=== PATIENT | male | born 1960 | race Caucasian/White ===

== ENCOUNTER 2018-04-27 04:12 | Inpatient (IN) | payer OTHER ==
[2018-04-27] MEDS: NITROGLYCERIN (SL) 0.4 MG TAB SL ×3 (04:29→04:53)
[2018-04-27] MEDS: ASPIRIN 325 MG TAB PO (04:30)
[2018-04-27 04:39] LABS: ADD MAN DIFF? NO
[2018-04-27 04:40] LABS: WHITE BLOOD COUNT 9.9 10^3/ul (4.8-10.8)
[2018-04-27 04:40] LABS: BASOPHIL # 0.1 10^3/ul (0.0-0.1); BASOPHILS % 0.6 % (0.0-2.0); EOSINOPHILS # 0.2 10^3/ul (0.0-0.5); EOSINOPHILS % 2.2 % (0.0-7.0); HEMATOCRIT 45.1 % (42.0-52.0); HEMOGLOBIN 14.7 g/dl (14.0-18.0); MEAN CORPUSCULAR HEMOGLOBIN 28.5 pg (29.0-33.0); MEAN CORPUSCULAR HGB CONC 32.6 g/dl (32.0-37.0); MEAN CORPUSCULAR VOLUME 87.6 fl (82.0-101.0); MEAN PLATELET VOLUME 10.4 fl (7.4-10.4); MONOCYTE # 0.7 10^3/ul (0.3-0.9); MONOCYTES % 6.8 % (0.0-11.0); NEUTROPHILS % 70.2 % (39.0-77.0); PLATELET COUNT 245 10^3/UL (140-415); RED BLOOD COUNT 5.15 10^6/ul (4.70-6.10); RED CELL DISTRIBUTION WIDTH 12.4 % (11.5-14.5)
[2018-04-27] MEDS: ONDANSETRON 4 MG INJ IV (04:41)
[2018-04-27] MEDS: morphine 4 MG/ML VIAL IV (04:42)
[2018-04-27 05:00] LABS: INR 0.97; PARTIAL THROMBOPLASTIN TIME 29.7 Sec (25.0-35.0)
[2018-04-27 05:03] LABS: ANION GAP 15 (8-16); BLOOD UREA NITROGEN 15 mg/dl (7-20); CALCIUM 9.1 mg/dl (8.4-10.2); CARBON DIOXIDE 27 mmol/L (21-31); CHLORIDE 108 mmol/L (97-110); CREATININE 0.86 mg/dl (0.61-1.24); GLUCOSE 105 mg/dl (70-220); POTASSIUM 4.2 mmol/L (3.5-5.1); SODIUM 146 mmol/L (135-144)
[2018-04-27] MEDS: FUROSEMIDE 40 MG INJ IV ×2 (05:14→11:51)
[2018-04-27] MEDS: ENOXAPARIN 80 MG/0.8 ML SYG SC (05:29)
[2018-04-27] MEDS ORDERED: NITROGLYCERIN (SL) 0.4 MG TAB (07:00)
[2018-04-27] MEDS ORDERED: ACETAMINOPHEN 325 MG TAB PO (07:30)
[2018-04-27] MEDS ORDERED: ONDANSETRON 4 MG INJ IV (07:30)
[2018-04-27 10:26] LABS: ALANINE AMINOTRANSFERASE 58 IU/L (13-69); ALBUMIN 4.2 g/dl (3.3-4.9); ALKALINE PHOSPHATASE 82 IU/L (42-121); ASPARTATE AMINO TRANSFERASE 74 IU/L (15-46); BILIRUBIN,INDIRECT 0.6 mg/dl (0-1.1); BILIRUBIN,TOTAL 0.6 mg/dl (0.2-1.3); TOTAL PROTEIN 7.9 g/dl (6.1-8.1)
[2018-04-27] MEDS: morphine 2 MG INJ IV ×2 (11:51→19:41)
[2018-04-27 12:01] LABS: CREATINE KINASE 455 IU/L (23-200)
[2018-04-27 12:11] LABS: CK INDEX 0.6; TROPONIN-I 0.062 ng/ml (0.000-0.120)
[2018-04-27 12:12] LABS: CK-MB 2.84 ng/ml (0.0-2.4)
[2018-04-27 12:45] LABS: TROPONIN-I 0.052 ng/ml (0.000-0.120)
[2018-04-27] MEDS ORDERED: CEFAZOLIN 2 GM/50 ML (PMX) 50 ML IVPB (14:00)
[2018-04-27 17:00] LABS: CREATINE KINASE 353 IU/L (23-200)
[2018-04-27 17:13] LABS: CK INDEX 0.6
[2018-04-27 17:16] LABS: CK-MB 2.27 ng/ml (0.0-2.4)
[2018-04-27 19:13] LABS: TROPONIN-I 0.052 ng/ml (0.000-0.120)
[2018-04-27] MEDS: ATORVASTATIN 40 MG TAB PO (21:46)
[2018-04-28] MEDS: FUROSEMIDE 40 MG INJ IV (05:42)
[2018-04-28] MEDS: ENOXAPARIN 80 MG/0.8 ML SYG SC (05:48)
[2018-04-28] MEDS: morphine 2 MG INJ IV ×4 (06:14→22:37)
[2018-04-28] MEDS ORDERED: SOD CHLORIDE 0.9% 250 ML IV* (07:38)
[2018-04-28] MEDS ORDERED: CEFAZOLIN 2 GM/50 ML (PMX) 50 ML IVPB (08:00)
[2018-04-28] MEDS: ASPIRIN 81 MG TAB PO (08:19)
[2018-04-28] MEDS: METOPROLOL 25 MG TAB PO ×2 (08:20→20:46)
[2018-04-28 08:58] LABS: ADD MAN DIFF? NO
[2018-04-28 09:06] LABS: BASOPHIL # 0.1 10^3/ul (0.0-0.1); BASOPHILS % 0.6 % (0.0-2.0); EOSINOPHILS # 0.2 10^3/ul (0.0-0.5); EOSINOPHILS % 1.9 % (0.0-7.0); HEMATOCRIT 45.8 % (42.0-52.0); HEMOGLOBIN 14.8 g/dl (14.0-18.0); LYMPHOCYTES # 1.9 10^3/ul (0.8-2.9); LYMPHOCYTES % 24.2 % (15.0-51.0); MEAN CORPUSCULAR HEMOGLOBIN 28.3 pg (29.0-33.0); MEAN CORPUSCULAR HGB CONC 32.3 g/dl (32.0-37.0); MEAN CORPUSCULAR VOLUME 87.6 fl (82.0-101.0); MEAN PLATELET VOLUME 10.9 fl (7.4-10.4); MONOCYTE # 0.7 10^3/ul (0.3-0.9); MONOCYTES % 8.3 % (0.0-11.0); NEUTROPHIL # 5.1 10^3/ul (1.6-7.5); NEUTROPHILS % 64.7 % (39.0-77.0); PLATELET COUNT 255 10^3/UL (140-415); RED BLOOD COUNT 5.23 10^6/ul (4.70-6.10); RED CELL DISTRIBUTION WIDTH 12.5 % (11.5-14.5)
[2018-04-28 09:06] LABS: WHITE BLOOD COUNT 7.8 10^3/ul (4.8-10.8)
[2018-04-28 09:24] LABS: ANION GAP 12 (8-16); BLOOD UREA NITROGEN 19 mg/dl (7-20); CALCIUM 8.8 mg/dl (8.4-10.2); CARBON DIOXIDE 34 mmol/L (21-31); CHLORIDE 103 mmol/L (97-110); CREATININE 0.89 mg/dl (0.61-1.24); GLUCOSE 102 mg/dl (70-220); MAGNESIUM 2.2 mg/dl (1.7-2.5); PHOSPHORUS 3.9 mg/dl (2.5-4.9); POTASSIUM 4.6 mmol/L (3.5-5.1); SODIUM 144 mmol/L (135-144)
[2018-04-28] MEDS: ATORVASTATIN 40 MG TAB PO (20:46)
[2018-04-29] MEDS: morphine 2 MG INJ IV ×4 (02:58→21:19)
[2018-04-29] MEDS: ENOXAPARIN 80 MG/0.8 ML SYG SC (05:15)
[2018-04-29] MEDS: ASPIRIN 81 MG TAB PO (08:01)
[2018-04-29] MEDS: METOPROLOL 25 MG TAB PO ×2 (08:04→21:17)
[2018-04-29] MEDS: ATORVASTATIN 40 MG TAB PO (21:17)
[2018-04-30] MEDS: morphine 2 MG INJ IV ×4 (01:40→11:47)
[2018-04-30] MEDS: ENOXAPARIN 80 MG/0.8 ML SYG SC (04:56)
[2018-04-30 06:40] LABS: ADD MAN DIFF? NO
[2018-04-30 06:43] LABS: WHITE BLOOD COUNT 8.9 10^3/ul (4.8-10.8)
[2018-04-30 06:43] LABS: BASOPHIL # 0.1 10^3/ul (0.0-0.1); BASOPHILS % 0.8 % (0.0-2.0); EOSINOPHILS # 0.3 10^3/ul (0.0-0.5); EOSINOPHILS % 3.1 % (0.0-7.0); HEMATOCRIT 43.8 % (42.0-52.0); LYMPHOCYTES # 3.1 10^3/ul (0.8-2.9); LYMPHOCYTES % 34.9 % (15.0-51.0); MEAN CORPUSCULAR HEMOGLOBIN 27.9 pg (29.0-33.0); MEAN CORPUSCULAR VOLUME 87.4 fl (82.0-101.0); MEAN PLATELET VOLUME 10.5 fl (7.4-10.4); MONOCYTE # 0.5 10^3/ul (0.3-0.9); PLATELET COUNT 244 10^3/UL (140-415); RED BLOOD COUNT 5.01 10^6/ul (4.70-6.10); RED CELL DISTRIBUTION WIDTH 12.2 % (11.5-14.5)
[2018-04-30] MEDS ORDERED: DOPamine-D5W 1.6 MG/ML 250 ML (07:00)
[2018-04-30] MEDS ORDERED: NITROGLYCERIN 50 MG/D5W 250 ML BTL (07:00)
[2018-04-30 07:02] LABS: ANION GAP 15 (8-16); BLOOD UREA NITROGEN 16 mg/dl (7-20); CALCIUM 8.7 mg/dl (8.4-10.2); CARBON DIOXIDE 27 mmol/L (21-31); CHLORIDE 107 mmol/L (97-110); CREATININE 0.79 mg/dl (0.61-1.24); GLUCOSE 103 mg/dl (70-220); MAGNESIUM 2.3 mg/dl (1.7-2.5); PHOSPHORUS 3.6 mg/dl (2.5-4.9); POTASSIUM 4.1 mmol/L (3.5-5.1); SODIUM 145 mmol/L (135-144)
[2018-04-30 07:05] LABS: INR 0.97
[2018-04-30 07:06] LABS: PARTIAL THROMBOPLASTIN TIME 31.5 Sec (25.0-35.0)
[2018-04-30] MEDS: METOPROLOL 25 MG TAB PO (08:51)
[2018-04-30] MEDS: ASPIRIN 81 MG TAB PO (08:51)
[2018-04-30] MEDS ORDERED: MIDAZOLAM 5 ML ×2 (12:00→14:48)
[2018-04-30] MEDS ORDERED: PHENYLephrine (100 MCG/ML) 5ML SYG ×2 (12:05→13:52)
[2018-04-30] MEDS ORDERED: CA CHLORIDE 10% 10 ML SYRINGE (12:16)
[2018-04-30] MEDS ORDERED: MAGNESIUM SULFATE (MG) 50% 10 ML INJ (12:16)
[2018-04-30] MEDS ORDERED: LIDOCAINE 100 MG SYRINGE (12:16)
[2018-04-30] MEDS ORDERED: POTASSIUM CHLORIDE 40 MEQ INJ (12:16)
[2018-04-30] MEDS ORDERED: HEPARIN 1000 UNITS/ML 10 ML INJ ×2 (12:16→14:14)
[2018-04-30] MEDS ORDERED: ALBUMIN HUMAN 25% 200 ML (12:17)
[2018-04-30] MEDS ORDERED: NA BICARBONATE 8.4% 50 ML SYG (12:17)
[2018-04-30] MEDS ORDERED: MANNITOL 20% 250 ML IV (12:17)
[2018-04-30] MEDS ORDERED: PHENYLephrine 10 MG INJ (12:18)
[2018-04-30] MEDS: INSULIN HUMAN REGULAR 100 UNIT in SOD CHLORIDE 0.9% 99 ML IVPB (13:00)
[2018-04-30] MEDS: HEPARIN (10000 UNITS/ML) 10,000 UNIT, MILRINONE LACTATE 10 MG in SOD CHLORIDE 0.9% 1,00... SC (13:00)
[2018-04-30] MEDS: ASPIRIN 600 MG SUPP PR (13:00)
[2018-04-30] MEDS: PHENYLephrine 20MG IN 250 ML 250 ML IV (13:00)
[2018-04-30] MEDS: NORepinephrine 8MG/250 ML (PMX 250 ML IV (13:00)
[2018-04-30] MEDS: PAPAVERINE 60 MG INJ (13:08)
[2018-04-30] MEDS: HEPARIN 1000 UNITS/ML 10 ML INJ (13:08)
[2018-04-30] MEDS: VANCOMYCIN 1 GM INJ (13:08)
[2018-04-30] MEDS ORDERED: SODIUM CL BACTERIOSTATIC 30 ML INJ (13:08)
[2018-04-30] MEDS ORDERED: TRANEXAMIC ACID 1,000 MG/10 ML VIAL (14:00)
[2018-04-30] MEDS ORDERED: CEFAZOLIN 1 GM INJ ×2 (14:08→14:53)
[2018-04-30] MEDS ORDERED: FUROSEMIDE 20 MG INJ ×2 (14:16→15:08)
[2018-04-30] MEDS ORDERED: PROTAMINE 250 MG INJ (15:53)
[2018-04-30] MEDS ORDERED: FUROSEMIDE 10 ML (15:56)
[2018-04-30] MEDS ORDERED: LIDOCAINE 2% (SDV) 5 ML INJ (16:43)
[2018-04-30] MEDS ORDERED: ROCURONIUM 50 MG INJ (16:43)
[2018-04-30] MEDS ORDERED: ETOMIDATE 20 MG INJ (16:43)
[2018-04-30] MEDS ORDERED: HYDROmorphONE 0.5 MG/0.5 ML SYG IV (17:00)
[2018-04-30] MEDS ORDERED: MAGNESIUM SULFATE 1 GM/D5W 100 ML IVPB (17:00)
[2018-04-30] MEDS ORDERED: NITROGLYCERIN 50 MG/D5W (PMX) 250 ML IV ×2 (17:00→18:00)
[2018-04-30] MEDS ORDERED: ONDANSETRON 4 MG INJ IV (17:00)
[2018-04-30] MEDS ORDERED: DOPamine-D5W 1.6 MG/ML 250 ML IV ×2 (17:00→18:00)
[2018-04-30] MEDS ORDERED: ACETAMINOPHEN 650MG/20.3ML CUP NGT (17:00)
[2018-04-30] MEDS: DOPamine-D5W 1.6 MG/ML 250 ML IV (17:30)
[2018-04-30] MEDS ORDERED: INSULIN HUMAN REGULAR 100 UNIT in SOD CHLORIDE 0.9% 99 ML IV (17:30)
[2018-04-30] MEDS: MILRINONE LACTATE 2 MG in SOD CHLORIDE 0.9% 50 ML IV (17:30)
[2018-04-30] MEDS ORDERED: KETOROLAC 30 MG INJ IV (17:30)
[2018-04-30] MEDS ORDERED: DEXTROSE 50% 50 ML SYRINGE IV ×2 (17:30)
[2018-04-30] MEDS: EPINEPHrine 4 MG in DEXTROSE 5% 246 ML IV (17:30)
[2018-04-30] MEDS: ACCU-CHEK XX ×7 (17:30→23:42)
[2018-04-30] MEDS ORDERED: EPINEPHrine 4 MG in DEXTROSE 5% 246 ML IV (18:00)
[2018-04-30 18:06] LABS: ADD MAN DIFF? NO
[2018-04-30 18:11] LABS: WHITE BLOOD COUNT 17.2 10^3/ul (4.8-10.8)
[2018-04-30 18:11] LABS: BASOPHIL # 0.1 10^3/ul (0.0-0.1); BASOPHILS % 0.3 % (0.0-2.0); EOSINOPHILS # 0.2 10^3/ul (0.0-0.5); HEMATOCRIT 37.1 % (42.0-52.0); HEMOGLOBIN 12.1 g/dl (14.0-18.0); LYMPHOCYTES % 17.2 % (15.0-51.0); MEAN CORPUSCULAR HEMOGLOBIN 28.5 pg (29.0-33.0); MEAN CORPUSCULAR HGB CONC 32.6 g/dl (32.0-37.0); MEAN CORPUSCULAR VOLUME 87.3 fl (82.0-101.0); MEAN PLATELET VOLUME 10.3 fl (7.4-10.4); MONOCYTE # 0.9 10^3/ul (0.3-0.9); MONOCYTES % 5.4 % (0.0-11.0); NEUTROPHILS % 75.6 % (39.0-77.0); PLATELET COUNT 167 10^3/UL (140-415); RED BLOOD COUNT 4.25 10^6/ul (4.70-6.10); RED CELL DISTRIBUTION WIDTH 12.2 % (11.5-14.5)
[2018-04-30 18:30] LABS: ANION GAP 13 (8-16); BLOOD UREA NITROGEN 19 mg/dl (7-20); CALCIUM 8.2 mg/dl (8.4-10.2); CARBON DIOXIDE 27 mmol/L (21-31); CHLORIDE 110 mmol/L (97-110); CREATININE 0.95 mg/dl (0.61-1.24); GLUCOSE 105 mg/dl (70-220); MAGNESIUM 3.4 mg/dl (1.7-2.5); POTASSIUM 3.9 mmol/L (3.5-5.1); SODIUM 146 mmol/L (135-144)
[2018-04-30 18:32] LABS: INR 1.23; PROTIME 15.7 Sec (11.9-14.9); PT RATIO 1.2
[2018-04-30 18:33] LABS: PARTIAL THROMBOPLASTIN TIME 32.3 Sec (25.0-35.0)
[2018-04-30] MEDS: CEFAZOLIN 1 GM/50 ML (PMX) 50 ML IVPB (18:39)
[2018-04-30] MEDS: POTASSIUM CHLORIDE 40 MEQ, CALCIUM CHLORIDE 10% 1 GM in DEXTROSE 5%-0.225% NACL 1,000 ML IV ×2 (18:40→22:58)
[2018-04-30] MEDS: HYDROmorphONE 0.5 MG/0.5 ML SYG IV ×3 (19:16→21:11)
[2018-04-30] MEDS: PROPOFOL 100 ML IV (20:00)
[2018-04-30] MEDS: POTASSIUM CHLORIDE 50 ML IVPB ×2 (20:17→22:18)
[2018-04-30] MEDS: FAMOTIDINE 20 MG INJ IV (20:25)
[2018-04-30] MEDS: FAMOTIDINE 20 MG TAB PO (21:00)
[2018-04-30] MEDS ORDERED: ALBUTEROL 0.083% (NEB) 2.5 MG/3 ML AMP HHN (21:00)
[2018-04-30] MEDS: ACETAMINOPHEN 1000MG/100ML IV 100 ML IVPB (23:29)
[2018-04-30] MEDS: ALBUMIN HUMAN 5% 250 ML IV (23:54)
[2018-05-01] MEDS: ALBUMIN HUMAN 5% 250 ML IV (00:30)
[2018-05-01] MEDS: ACCU-CHEK XX ×13 (00:30→13:00)
[2018-05-01 00:47] LABS: ADD MAN DIFF? NO
[2018-05-01 00:53] LABS: WHITE BLOOD COUNT 14.2 10^3/ul (4.8-10.8)
[2018-05-01 00:53] LABS: BASOPHILS % 0.2 % (0.0-2.0); EOSINOPHILS % 0.1 % (0.0-7.0); HEMATOCRIT 38.4 % (42.0-52.0); HEMOGLOBIN 12.4 g/dl (14.0-18.0); LYMPHOCYTES # 0.9 10^3/ul (0.8-2.9); LYMPHOCYTES % 6.4 % (15.0-51.0); MEAN CORPUSCULAR HEMOGLOBIN 27.9 pg (29.0-33.0); MEAN CORPUSCULAR HGB CONC 32.3 g/dl (32.0-37.0); MEAN CORPUSCULAR VOLUME 86.5 fl (82.0-101.0); MEAN PLATELET VOLUME 10.5 fl (7.4-10.4); MONOCYTES % 7.2 % (0.0-11.0); NEUTROPHIL # 12.1 10^3/ul (1.6-7.5); NEUTROPHILS % 85.7 % (39.0-77.0); PLATELET COUNT 212 10^3/UL (140-415); RED BLOOD COUNT 4.44 10^6/ul (4.70-6.10); RED CELL DISTRIBUTION WIDTH 12.5 % (11.5-14.5)
[2018-05-01] MEDS: CEFAZOLIN 1 GM/50 ML (PMX) 50 ML IVPB ×2 (01:00→08:30)
[2018-05-01 01:16] LABS: ALANINE AMINOTRANSFERASE 39 IU/L (13-69); ALBUMIN 3.7 g/dl (3.3-4.9); ALBUMIN/GLOBULIN RATIO 1.23; ALKALINE PHOSPHATASE 56 IU/L (42-121); ANION GAP 14 (8-16); ASPARTATE AMINO TRANSFERASE 56 IU/L (15-46); BILIRUBIN,INDIRECT 0.5 mg/dl (0-1.1); BILIRUBIN,TOTAL 0.5 mg/dl (0.2-1.3); BLOOD UREA NITROGEN 20 mg/dl (7-20); CALCIUM 8.4 mg/dl (8.4-10.2); CARBON DIOXIDE 28 mmol/L (21-31); CHLORIDE 109 mmol/L (97-110); GLUCOSE 144 mg/dl (70-220); MAGNESIUM 2.3 mg/dl (1.7-2.5); POTASSIUM 4.7 mmol/L (3.5-5.1); SODIUM 146 mmol/L (135-144); TOTAL PROTEIN 6.7 g/dl (6.1-8.1)
[2018-05-01 01:25] LABS: PARTIAL THROMBOPLASTIN TIME 34.3 Sec (25.0-35.0)
[2018-05-01] MEDS: HYDROmorphONE 0.5 MG/0.5 ML SYG IV ×4 (02:35→08:02)
[2018-05-01] MEDS: ACETAMINOPHEN 1000MG/100ML IV 100 ML IVPB (05:23)
[2018-05-01 05:32] LABS: ADD MAN DIFF? NO
[2018-05-01 05:37] LABS: BASOPHILS % 0.2 % (0.0-2.0); HEMOGLOBIN 12.5 g/dl (14.0-18.0); LYMPHOCYTES % 6.8 % (15.0-51.0); MEAN CORPUSCULAR HEMOGLOBIN 28.1 pg (29.0-33.0); MEAN CORPUSCULAR HGB CONC 32.1 g/dl (32.0-37.0); MEAN CORPUSCULAR VOLUME 87.6 fl (82.0-101.0); MEAN PLATELET VOLUME 11.2 fl (7.4-10.4); MONOCYTE # 1.1 10^3/ul (0.3-0.9); MONOCYTES % 8.1 % (0.0-11.0); NEUTROPHIL # 11.8 10^3/ul (1.6-7.5); NEUTROPHILS % 84.5 % (39.0-77.0); PLATELET COUNT 207 10^3/UL (140-415); RED BLOOD COUNT 4.45 10^6/ul (4.70-6.10); RED CELL DISTRIBUTION WIDTH 12.2 % (11.5-14.5)
[2018-05-01 05:54] LABS: INR 1.13; PROTIME 14.7 Sec (11.9-14.9); PT RATIO 1.1
[2018-05-01 05:55] LABS: PARTIAL THROMBOPLASTIN TIME 30.3 Sec (25.0-35.0)
[2018-05-01 06:07] LABS: MAGNESIUM 2.3 mg/dl (1.7-2.5)
[2018-05-01 06:07] LABS: PHOSPHORUS 5.4 mg/dl (2.5-4.9)
[2018-05-01 06:18] LABS: ALANINE AMINOTRANSFERASE 37 IU/L (13-69); ALBUMIN 3.9 g/dl (3.3-4.9); ALBUMIN/GLOBULIN RATIO 1.39; ALKALINE PHOSPHATASE 53 IU/L (42-121); ANION GAP 19 (8-16); ASPARTATE AMINO TRANSFERASE 57 IU/L (15-46); BILIRUBIN,INDIRECT 0.7 mg/dl (0-1.1); BILIRUBIN,TOTAL 0.7 mg/dl (0.2-1.3); BLOOD UREA NITROGEN 21 mg/dl (7-20); CALCIUM 8.7 mg/dl (8.4-10.2); CARBON DIOXIDE 24 mmol/L (21-31); CHLORIDE 108 mmol/L (97-110); CREATININE 0.91 mg/dl (0.61-1.24); GLUCOSE 137 mg/dl (70-220); POTASSIUM 5.3 mmol/L (3.5-5.1); SODIUM 146 mmol/L (135-144); TOTAL PROTEIN 6.7 g/dl (6.1-8.1)
[2018-05-01] MEDS: ACETAMINOPHEN 325 MG TAB PO ×2 (06:19→08:30)
[2018-05-01 07:41] LABS: AADO2 Arterial 130.1 mmHg (7.0-24.0); AADO2 Arterial 142.6 mmHg (7.0-24.0); AADO2 Arterial 327.8 mmHg (7.0-24.0); AADO2 Arterial 334.4 mmHg (7.0-24.0); Allen Test ACCEPTAB; Arterial Base Excess -0.3 mmol/L (-3.0-3); Arterial Base Excess -1.5 mmol/L (-3.0-3); Arterial Base Excess -2.6 mmol/L (-3.0-3); Arterial Base Excess 0.2 mmol/L (-3.0-3); Arterial Blood Gas Oxygen Sat 95.1 mmHG (95.0-98.0); Arterial Blood Gas Oxygen Sat 96.1 mmHG (95.0-98.0); Arterial Blood Gas Oxygen Sat 97.1 mmHG (95.0-98.0); Arterial Blood Gas Oxygen Sat 98.3 mmHG (95.0-98.0); Arterial COHb 0.1 % (0.0-3.0); Arterial COHb 0.2 % (0.0-3.0); Arterial COHb 0.4 % (0.0-3.0); Arterial Fraction of Oxyhgb 94.7 % (93.0-99.0); Arterial Fraction of Oxyhgb 95.5 % (93.0-99.0); Arterial Fraction of Oxyhgb 96.3 % (93.0-99.0); Arterial Fraction of Oxyhgb 97.7 % (93.0-99.0); Arterial HCO3 23.5 mmol/L (22.0-26.0); Arterial HCO3 24.9 mmol/L (22.0-26.0); Arterial HCO3 25.2 mmol/L (22.0-26.0); Arterial HCO3 26.1 mmol/L (22.0-26.0); Arterial MetHb 0.2 % (0.0-1.5); Arterial MetHb 0.4 % (0.0-1.5); Arterial MetHb 0.5 % (0.0-1.5); Arterial Total Hemglobin 13.7 g/dl (12.0-18.0); Arterial Total Hemglobin 14.2 g/dl (12.0-18.0); Arterial Total Hemglobin 14.7 g/dl (12.0-18.0); Arterial pCO2 40.6 mmhg (35-45); Arterial pCO2 42.9 mmhg (35-45); Arterial pCO2 55.9 mmhg (35-45); Blood Gas PS 6; MODE NASAL CANNULA; MODE VENT - AC; MODE VENT - PSV; MetHgb Mixed Venous 0.4 %; Mixed Venous Base Excess -1.1 mmol/L; Mixed Venous COHb 0.3 %; Mixed Venous Fraction OxyHgb 78.6 %; Mixed Venous Oxygen Sat 79.2 mmHG (65.0-75.0); Mixed Venous Total Hemglobin 14.2 g/dl; Sample Type Blood venous; Site A-Line
[2018-05-01] MEDS: FAMOTIDINE 20 MG INJ IV ×2 (08:00→20:00)
[2018-05-01] MEDS: PROPOFOL 100 ML IV (08:00)
[2018-05-01] MEDS: FAMOTIDINE 20 MG TAB PO ×2 (08:29→20:22)
[2018-05-01] MEDS: ASPIRIN 325 MG TAB PO (08:30)
[2018-05-01] MEDS: FUROSEMIDE 40 MG INJ IV (09:47)
[2018-05-01] MEDS: OXYCODONE/ACETAMINOPHEN (5/325) TAB PO ×4 (09:48→22:11)
[2018-05-01] MEDS: morphine 2 MG INJ IV ×4 (10:45→23:37)
[2018-05-01 17:07] LABS: HEMATOCRIT 38.4 % (42.0-52.0)
[2018-05-01 17:42] LABS: ANION GAP 11 (8-16); BLOOD UREA NITROGEN 23 mg/dl (7-20); CALCIUM 8.5 mg/dl (8.4-10.2); CARBON DIOXIDE 28 mmol/L (21-31); CHLORIDE 104 mmol/L (97-110); CREATININE 0.83 mg/dl (0.61-1.24); GLUCOSE 125 mg/dl (70-220); POTASSIUM 4.4 mmol/L (3.5-5.1); SODIUM 139 mmol/L (135-144)
[2018-05-01] MEDS: ATORVASTATIN 80 MG TAB PO (20:22)
[2018-05-01] MEDS: ENOXAPARIN 40 MG/0.4 ML SYG SC (20:24)
[2018-05-02] MEDS: OXYCODONE/ACETAMINOPHEN (5/325) TAB PO ×4 (02:39→20:58)
[2018-05-02] MEDS: POTASSIUM CHLORIDE 40 MEQ, CALCIUM CHLORIDE 10% 1 GM in DEXTROSE 5%-0.225% NACL 1,000 ML IV (03:19)
[2018-05-02] MEDS: morphine 2 MG INJ IV ×5 (04:57→23:00)
[2018-05-02 05:18] LABS: ADD MAN DIFF? NO
[2018-05-02 05:21] LABS: ABNORMAL IP MESSAGE 1; BASOPHILS % 0.2 % (0.0-2.0); EOSINOPHILS % 0.1 % (0.0-7.0); HEMATOCRIT 36.7 % (42.0-52.0); HEMOGLOBIN 11.9 g/dl (14.0-18.0); LYMPHOCYTES # 2.4 10^3/ul (0.8-2.9); LYMPHOCYTES % 13.5 % (15.0-51.0); MEAN CORPUSCULAR HEMOGLOBIN 28.3 pg (29.0-33.0); MEAN CORPUSCULAR HGB CONC 32.4 g/dl (32.0-37.0); MEAN CORPUSCULAR VOLUME 87.4 fl (82.0-101.0); MEAN PLATELET VOLUME 11.4 fl (7.4-10.4); MONOCYTE # 1.7 10^3/ul (0.3-0.9); MONOCYTES % 9.5 % (0.0-11.0); NEUTROPHIL # 13.3 10^3/ul (1.6-7.5); NEUTROPHILS % 76.3 % (39.0-77.0); PLATELET COUNT 183 10^3/UL (140-415); POSITIVE DIFF @See below; RED CELL DISTRIBUTION WIDTH 12.5 % (11.5-14.5)
[2018-05-02 05:21] LABS: WHITE BLOOD COUNT 17.5 10^3/ul (4.8-10.8)
[2018-05-02 06:15] LABS: ANION GAP 10 (8-16); BLOOD UREA NITROGEN 26 mg/dl (7-20); CALCIUM 8.7 mg/dl (8.4-10.2); CARBON DIOXIDE 32 mmol/L (21-31); CHLORIDE 102 mmol/L (97-110); CREATININE 0.91 mg/dl (0.61-1.24); GLUCOSE 124 mg/dl (70-220); MAGNESIUM 2.6 mg/dl (1.7-2.5); PHOSPHORUS 4.2 mg/dl (2.5-4.9); POTASSIUM 4.7 mmol/L (3.5-5.1); SODIUM 139 mmol/L (135-144)
[2018-05-02] MEDS: FAMOTIDINE 20 MG INJ IV (08:00)
[2018-05-02] MEDS: ASPIRIN 325 MG TAB PO (09:11)
[2018-05-02] MEDS: FAMOTIDINE 20 MG TAB PO ×2 (09:12→20:59)
[2018-05-02] MEDS: ENOXAPARIN 40 MG/0.4 ML SYG SC ×2 (09:14→21:02)
[2018-05-02] MEDS: LISINOPRIL 5 MG TAB PO (12:17)
[2018-05-02] MEDS: FUROSEMIDE 40 MG TAB PO (12:18)
[2018-05-02] MEDS: ATORVASTATIN 80 MG TAB PO (20:59)
[2018-05-03] MEDS: morphine 2 MG INJ IV ×4 (04:14→22:34)
[2018-05-03] MEDS: OXYCODONE/ACETAMINOPHEN (5/325) TAB PO ×3 (06:28→20:35)
[2018-05-03] MEDS: ASPIRIN 325 MG TAB PO (08:21)
[2018-05-03] MEDS: FAMOTIDINE 20 MG TAB PO ×2 (08:21→20:36)
[2018-05-03] MEDS: LISINOPRIL 5 MG TAB PO (08:22)
[2018-05-03] MEDS: FUROSEMIDE 40 MG TAB PO (08:22)
[2018-05-03] MEDS: ENOXAPARIN 40 MG/0.4 ML SYG SC ×2 (08:26→20:39)
[2018-05-03] MEDS: LEVALBUTEROL (HFA) 15 GM INHALER INH ×4 (08:55→22:35)
[2018-05-03 08:58] LABS: ADD MAN DIFF? NO
[2018-05-03 09:11] LABS: BASOPHILS % 0.2 % (0.0-2.0); EOSINOPHILS # 0.1 10^3/ul (0.0-0.5); EOSINOPHILS % 0.4 % (0.0-7.0); HEMATOCRIT 35.6 % (42.0-52.0); HEMOGLOBIN 11.4 g/dl (14.0-18.0); LYMPHOCYTES # 1.9 10^3/ul (0.8-2.9); LYMPHOCYTES % 12.4 % (15.0-51.0); MEAN CORPUSCULAR HEMOGLOBIN 27.9 pg (29.0-33.0); MEAN CORPUSCULAR VOLUME 87.3 fl (82.0-101.0); MEAN PLATELET VOLUME 12.3 fl (7.4-10.4); MONOCYTE # 1.1 10^3/ul (0.3-0.9); MONOCYTES % 7.2 % (0.0-11.0); NEUTROPHIL # 12.4 10^3/ul (1.6-7.5); NEUTROPHILS % 79.4 % (39.0-77.0); PLATELET COUNT 155 10^3/UL (140-415); RED BLOOD COUNT 4.08 10^6/ul (4.70-6.10); RED CELL DISTRIBUTION WIDTH 12.4 % (11.5-14.5)
[2018-05-03 09:11] LABS: WHITE BLOOD COUNT 15.6 10^3/ul (4.8-10.8)
[2018-05-03 09:50] LABS: ANION GAP 15 (8-16); BLOOD UREA NITROGEN 31 mg/dl (7-20); CALCIUM 8.6 mg/dl (8.4-10.2); CARBON DIOXIDE 30 mmol/L (21-31); CHLORIDE 97 mmol/L (97-110); CREATININE 0.77 mg/dl (0.61-1.24); GLUCOSE 106 mg/dl (70-220); MAGNESIUM 2.2 mg/dl (1.7-2.5); PHOSPHORUS 3.1 mg/dl (2.5-4.9); POTASSIUM 4.7 mmol/L (3.5-5.1); SODIUM 137 mmol/L (135-144)
[2018-05-03] MEDS: ATORVASTATIN 80 MG TAB PO (20:35)
[2018-05-04] MEDS: morphine 2 MG INJ IV ×5 (00:38→23:30)
[2018-05-04] MEDS: LEVOFLOXACIN 500 MG TAB PO (05:45)
[2018-05-04] MEDS: OXYCODONE/ACETAMINOPHEN (5/325) TAB PO ×5 (05:45→20:52)
[2018-05-04] MEDS: LEVALBUTEROL (HFA) 15 GM INHALER INH ×2 (05:46→14:42)
[2018-05-04 07:14] LABS: ADD MAN DIFF? NO
[2018-05-04 07:20] LABS: BASOPHIL # 0.1 10^3/ul (0.0-0.1); BASOPHILS % 0.5 % (0.0-2.0); EOSINOPHILS # 0.4 10^3/ul (0.0-0.5); EOSINOPHILS % 3.9 % (0.0-7.0); HEMATOCRIT 32.9 % (42.0-52.0); HEMOGLOBIN 10.7 g/dl (14.0-18.0); LYMPHOCYTES # 2.6 10^3/ul (0.8-2.9); MEAN CORPUSCULAR HEMOGLOBIN 28.5 pg (29.0-33.0); MEAN CORPUSCULAR HGB CONC 32.5 g/dl (32.0-37.0); MEAN CORPUSCULAR VOLUME 87.7 fl (82.0-101.0); MEAN PLATELET VOLUME 10.9 fl (7.4-10.4); MONOCYTE # 0.9 10^3/ul (0.3-0.9); MONOCYTES % 8.1 % (0.0-11.0); NEUTROPHIL # 7.1 10^3/ul (1.6-7.5); NEUTROPHILS % 64.2 % (39.0-77.0); PLATELET COUNT 247 10^3/UL (140-415); RED BLOOD COUNT 3.75 10^6/ul (4.70-6.10); RED CELL DISTRIBUTION WIDTH 12.1 % (11.5-14.5)
[2018-05-04 07:20] LABS: WHITE BLOOD COUNT 11.1 10^3/ul (4.8-10.8)
[2018-05-04 07:45] LABS: ANION GAP 12 (8-16); BLOOD UREA NITROGEN 27 mg/dl (7-20); CALCIUM 8.4 mg/dl (8.4-10.2); CARBON DIOXIDE 32 mmol/L (21-31); CHLORIDE 98 mmol/L (97-110); CREATININE 0.82 mg/dl (0.61-1.24); GLUCOSE 114 mg/dl (70-220); MAGNESIUM 2.1 mg/dl (1.7-2.5); PHOSPHORUS 3.6 mg/dl (2.5-4.9); POTASSIUM 4.1 mmol/L (3.5-5.1); SODIUM 138 mmol/L (135-144)
[2018-05-04] MEDS: FUROSEMIDE 20 MG TAB PO (09:18)
[2018-05-04] MEDS: LISINOPRIL 5 MG TAB PO (09:19)
[2018-05-04] MEDS: FAMOTIDINE 20 MG TAB PO ×2 (09:19→20:50)
[2018-05-04] MEDS: ASPIRIN 325 MG TAB PO (09:20)
[2018-05-04] MEDS: ENOXAPARIN 40 MG/0.4 ML SYG SC ×2 (09:23→20:56)
[2018-05-04] MEDS: ATORVASTATIN 80 MG TAB PO (20:50)
[2018-05-05] MEDS: OXYCODONE/ACETAMINOPHEN (5/325) TAB PO ×4 (04:26→19:44)
[2018-05-05] MEDS: LEVOFLOXACIN 500 MG TAB PO (05:19)
[2018-05-05 07:15] LABS: ADD MAN DIFF? NO
[2018-05-05 07:18] LABS: WHITE BLOOD COUNT 10.2 10^3/ul (4.8-10.8)
[2018-05-05 07:18] LABS: BASOPHIL # 0.1 10^3/ul (0.0-0.1); BASOPHILS % 0.5 % (0.0-2.0); EOSINOPHILS # 0.3 10^3/ul (0.0-0.5); EOSINOPHILS % 3.2 % (0.0-7.0); HEMATOCRIT 33.7 % (42.0-52.0); HEMOGLOBIN 10.9 g/dl (14.0-18.0); LYMPHOCYTES # 1.9 10^3/ul (0.8-2.9); LYMPHOCYTES % 18.7 % (15.0-51.0); MEAN CORPUSCULAR HEMOGLOBIN 28.3 pg (29.0-33.0); MEAN CORPUSCULAR HGB CONC 32.3 g/dl (32.0-37.0); MEAN CORPUSCULAR VOLUME 87.5 fl (82.0-101.0); MONOCYTE # 0.8 10^3/ul (0.3-0.9); MONOCYTES % 8.1 % (0.0-11.0); NEUTROPHIL # 7.1 10^3/ul (1.6-7.5); NEUTROPHILS % 69.2 % (39.0-77.0); PLATELET COUNT 268 10^3/UL (140-415); RED BLOOD COUNT 3.85 10^6/ul (4.70-6.10); RED CELL DISTRIBUTION WIDTH 12.1 % (11.5-14.5)
[2018-05-05] MEDS: morphine 2 MG INJ IV ×4 (07:25→22:35)
[2018-05-05 07:46] LABS: ANION GAP 13 (8-16); BLOOD UREA NITROGEN 19 mg/dl (7-20); CALCIUM 8.8 mg/dl (8.4-10.2); CARBON DIOXIDE 30 mmol/L (21-31); CHLORIDE 98 mmol/L (97-110); CREATININE 0.78 mg/dl (0.61-1.24); GLUCOSE 108 mg/dl (70-220); MAGNESIUM 1.9 mg/dl (1.7-2.5); PHOSPHORUS 4.3 mg/dl (2.5-4.9); POTASSIUM 4.4 mmol/L (3.5-5.1); SODIUM 137 mmol/L (135-144)
[2018-05-05] MEDS: ASPIRIN 325 MG TAB PO (08:51)
[2018-05-05] MEDS: FUROSEMIDE 20 MG TAB PO (08:52)
[2018-05-05] MEDS: FAMOTIDINE 20 MG TAB PO ×2 (08:52→20:07)
[2018-05-05] MEDS: LISINOPRIL 5 MG TAB PO (08:53)
[2018-05-05] MEDS: ENOXAPARIN 40 MG/0.4 ML SYG SC ×2 (09:00→20:09)
[2018-05-05] MEDS: IPRATROPIUM (NEB) 0.5 MG/2.5 ML AMP HHN ×2 (12:35→21:20)
[2018-05-05] MEDS: ALBUTEROL 0.083% (NEB) 2.5 MG/3 ML AMP HHN ×2 (12:35→21:19)
[2018-05-05] MEDS: ATORVASTATIN 80 MG TAB PO (20:07)
[2018-05-06] MEDS: OXYCODONE/ACETAMINOPHEN (5/325) TAB PO ×6 (01:39→20:00)
[2018-05-06] MEDS: morphine 2 MG INJ IV ×4 (04:32→21:55)
[2018-05-06] MEDS: LEVOFLOXACIN 500 MG TAB PO (05:26)
[2018-05-06] MEDS: IPRATROPIUM (NEB) 0.5 MG/2.5 ML AMP HHN ×2 (07:48→17:51)
[2018-05-06] MEDS: ALBUTEROL 0.083% (NEB) 2.5 MG/3 ML AMP HHN ×2 (07:48→17:52)
[2018-05-06] MEDS: ASPIRIN 325 MG TAB PO (07:55)
[2018-05-06] MEDS: FAMOTIDINE 20 MG TAB PO ×2 (07:57→19:59)
[2018-05-06] MEDS: LISINOPRIL 5 MG TAB PO (07:58)
[2018-05-06] MEDS: FUROSEMIDE 20 MG TAB PO (07:59)
[2018-05-06] MEDS: ENOXAPARIN 40 MG/0.4 ML SYG SC ×2 (08:13→19:58)
[2018-05-06] MEDS: ATORVASTATIN 80 MG TAB PO (19:59)
[2018-05-07] MEDS: OXYCODONE/ACETAMINOPHEN (5/325) TAB PO ×3 (01:32→11:58)
[2018-05-07] MEDS: morphine 2 MG INJ IV ×2 (05:06→09:19)
[2018-05-07] MEDS: LEVOFLOXACIN 500 MG TAB PO (05:06)
[2018-05-07] MEDS: ALBUTEROL 0.083% (NEB) 2.5 MG/3 ML AMP HHN ×2 (05:14→12:05)
[2018-05-07] MEDS: IPRATROPIUM (NEB) 0.5 MG/2.5 ML AMP HHN ×2 (05:14→12:05)
[2018-05-07] MEDS: ASPIRIN 325 MG TAB PO (08:25)
[2018-05-07] MEDS: FAMOTIDINE 20 MG TAB PO (08:25)
[2018-05-07] MEDS: LISINOPRIL 5 MG TAB PO (08:27)
[2018-05-07] MEDS: FUROSEMIDE 20 MG TAB PO (08:27)
[2018-05-07] MEDS: ENOXAPARIN 40 MG/0.4 ML SYG SC (08:31)
== END 2018-05-07 13:55 | disposition home health service (06) | DRG 235 ==
LOC: TEL 04-29 05:21 → E/R 04:12 → TEL 05-02 13:38 → ICU 04-30 16:10 → TEL 07:23
PROC: 021209W Bypass Coronary Artery, Three Arteries from Aorta with Autologous Venous Tissue, Open Approach (ICD-10-PCS; principal; 2018-04-30 13:00)
PROC: 02100Z9 Bypass Coronary Artery, One Artery from Left Internal Mammary, Open Approach (ICD-10-PCS; 2018-04-30 13:00)
PROC: 06BP4ZZ Excision of Right Saphenous Vein, Percutaneous Endoscopic Approach (ICD-10-PCS; 2018-04-30 13:00)
PROC: 5A1221Z Performance of Cardiac Output, Continuous (ICD-10-PCS; 2018-04-30 13:00)
DX: I11.0 Hypertensive heart disease with heart failure (principal); I21.4 Non-ST elevation (NSTEMI) myocardial infarction; J95.821 Acute postprocedural respiratory failure; E87.0 Hyperosmolality and hypernatremia; D62 Acute posthemorrhagic anemia; I50.23 Acute on chronic systolic (congestive) heart failure; I25.110 Atherosclerotic heart disease of native coronary artery with unstable angina pectoris; I25.5 Ischemic cardiomyopathy; I25.82 Chronic total occlusion of coronary artery; E87.5 Hyperkalemia; J40 Bronchitis, not specified as acute or chronic; Y83.8 Other surgical procedures as the cause of abnormal reaction of the patient, or of later complication, without mention of misadventure at the time of the procedure
CPT/HCPCS: 36415; 36592; 36600; 71045; 80048; 80053; 80076; 82550; 82553; 82803; 82962; 83735; 84100; 84484; 85014; 85025; 85610; 85730; 86850; 86900; 86901; 86920; 87070; 87081; 93005; 93312; 93880; 94002; 94640; 94770; 96372; 96374; 96375; 97116; 97161; 97530; 99285-25; G0378